=== PATIENT | female | born 1985 | race Caucasian/White ===

== ENCOUNTER → 2022-05-12 10:37 | Outpatient (BNVA) | payer BC, SELFPAY | PROVIDERS: Visit Provider Nurse Practitioner Family | DX: M41.9 Scoliosis, unspecified (principal); G43.909 Migraine, unspecified, not intractable, without status migrainosus; M54.9 Dorsalgia, unspecified | CPT/HCPCS: 80053 ==

== ENCOUNTER 2022-05-26 06:00 | Outpatient (RCR) | payer BC, SELFPAY | END 2022-05-27 23:59 | disposition home or self-care (01) | LOC: TPT 06:00 | PROVIDERS: Visit Provider Nurse Practitioner Family | DX: M41.9 Scoliosis, unspecified (principal); M54.9 Dorsalgia, unspecified | CPT/HCPCS: 97162 ==

== ENCOUNTER → 2022-05-27 09:00 | Outpatient (BNVA) | payer BC, SELFPAY | PROVIDERS: Visit Provider Family Medicine | DX: R39.15 Urgency of urination (principal); N30.90 Cystitis, unspecified without hematuria | CPT/HCPCS: 81000 ==

== ENCOUNTER 2022-05-28 06:00 | Outpatient (RCR) | payer BC, SELFPAY | END 2022-06-26 23:59 | disposition home or self-care (01) | LOC: TPT 06:00 | PROVIDERS: Visit Provider Nurse Practitioner Family | DX: M54.9 Dorsalgia, unspecified (principal); M41.9 Scoliosis, unspecified | CPT/HCPCS: 97110 ==